=== PATIENT | male | born 1940 | race Caucasian/White ===

== ENCOUNTER 2017-08-02 11:21 | Emergency (ER) | payer BC, MEDICARE, OTHER ==
--- NOTE | 2017-08-02 14:04 | UC ---
Respiratory Complaint HPI - HPI Summary HPI Summary: 77 y/o male present to the urgent care c/o productive cough, SOB and chest congestion for the past 3 days. Pt states cough started to be productive last nigh. He feels fluid is coming up from his chest when he lays down and feels SOB with some wheezing. He started to take Robitussin last night to alleviate cough. Pt denies fever, Chest pain, N/V/D, abdominal pain, urinary symptoms. - History of Current Complaint Chief Complaint: UCRespiratory Stated Complaint: COUGH CONGESTION Time Seen by Provider: 08/02/17 14:02 Hx Obtained From: Patient Onset/Duration: Gradual Onset, Lasting Days - 3 days, Still Present Timing: Intermittent Episodes Severity Initially: Mild Severity Currently: Moderate Pain Intensity: 0 Pain Scale Used: 0-10 Numeric Character: Cough: Productive - white phlegm Aggravating Factors: Recumbent Position Alleviating Factors: Upright Position Associated Signs And Symptoms: Positive: Dyspnea, Wheezing, Edema. Negative: Fever, Chills, Pleuritic Chest Pain, Dizziness, Calf Pain, Calf Swelling - Risk Factors Pulmonary Embolism Risk Factors: Negative Cardiac Risk Factors: Hypertension Pseudomonas Risk Factors: Negative Tuberculosis Risk Factors: Negative - Allergies/Home Medications Allergies/Adverse Reactions: Allergies Allergy/AdvReac Type Severity Reaction Status Date / Time No Known Allergies Allergy Verified 08/02/17 13:18 Home Medications: Home Medications Amiodarone HCl [Amiodarone HCl-] 100 mg PO DAILY 08/02/17 [History Confirmed ] Aspirin [Aspirin 81 MG TAB] 81 mg PO DAILY 08/02/17 [History Confirmed 08/02/17] Blood Thinner Injection 08/02/17 [History] Furosemide TAB* [Lasix TAB*] 20 mg PO DAILY PRN 08/02/17 [History Confirmed ] Losartan TAB* [Cozaar TAB*] 50 mg PO DAILY 08/02/17 [History Confirmed 08/02/17] Omeprazole CAP* [Prilosec CAP* 20 MG] 20 mg PO DAILY 08/02/17 [History Confirmed 08/02/17] Rosuvastatin (NF) [Crestor (NF)] 10 mg PO DAILY 08/02/17 [History Confirmed ] Warfarin TAB(*) [Coumadin TAB(*)] 2 mg PO DAILY 08/02/17 [History Confirmed ] amLODIPine TAB* [Norvasc 5 mg TAB*] 5 mg PO DAILY 08/02/17 [History Confirmed ] PMH/Surg Hx/FS Hx/Imm Hx Previously Healthy: Yes Endocrine History: Dyslipidemia Cardiovascular History: Hypertension Other Cardiovascular History: atificial heart valve GI/ History: Gastroesophageal Reflux - Surgical History Surgical History: Yes Surgery Procedure, Year, and Place: AORTIC VALVE REPLACEMENT. HERNIA REPAIR. CHOLYCYSTECTOMY - Family History Known Family History: Positive: Cardiac Disease, Hypertension - Social History Occupation: Retired Lives: With Family Alcohol Use: None Substance Use Type: None Smoking Status (MU): Former Smoker Type: Cigarettes When Did the Patient Quit Smoking/Using Tobacco: 20 YEARS AGO Review of Systems Constitutional: Negative Skin: Negative Eyes: Negative ENT: Negative Respiratory: Shortness Of Breath, Cough - productive cough Cardiovascular: Negative Gastrointestinal: Negative Genitourinary: Negative Motor: Negative Neurovascular: Negative Musculoskeletal: Negative Neurological: Negative Psychological: Negative Is Patient Immunocompromised?: No All Other Systems Reviewed And Are Negative: Yes Physical Exam Triage Information Reviewed: Yes Appearance: Well-Appearing, No Pain Distress, Well-Nourished - sitting comfortably in the examining table w/o any apaprent distress Vital Signs: Initial Vital Signs Temp 97.8 F 08/02/17 13:27 Pulse 67 08/02/17 13:27 Resp 20 08/02/17 13:27 Pulse Ox 95 08/02/17 13:27 Vital Signs Reviewed: Yes Eyes: Positive: Conjunctiva Clear - PERRLA, EOMI, fundi grossly normal ENT: Positive: Normal ENT inspection, Hearing grossly normal, Pharynx normal, TMs normal - B/L clear exteranal canals, B/L TM's WNL Neck: Positive: Supple, Nontender, No Lymphadenopathy Respiratory: Positive: Chest non-tender, No respiratory distress, No accessory muscle use, Crackles - B/L posterior upper lungs, Rhonchi Cardiovascular: Positive: RRR, Pulses Normal, Brisk Capillary Refill Abdomen Description: Positive: Nontender, No Organomegaly, Soft. Negative: CVA Tenderness (R), CVA Tenderness (L) Bowel Sounds: Positive: Present Musculoskeletal: Positive: Strength Intact, ROM Intact, Edema @ - B/L lowr leg mild pitting edema Neurological: Positive: Alert - A&OX3, CNII-XII intact, Muscle Tone Normal Psychological Exam: Normal Skin Exam: Normal UC Diagnostic Evaluation - Laboratory O2 Sat by Pulse Oximetry: 95 Respiratory Course/Dx - Course Course Of Treatment: 77 y/o male present to the urgent care c/o productive cough , SOB and chest congestion for the past 3 days. Pt states cough started to be productive last nigh. He feels fluid is coming up from his chest when he lays down and feels SOB with some wheezing. He started to take Robitussin last night to alleviate cough. Pt denies fever, Chest pain, N/V/D, abdominal pain, urinary symptoms. Pt with B/L rhonchi and mild crackles in the posterior upper lung ochoa on examination, with O2Sat: 95%, HX of artificial valve since 1989. Pt advised I needed to do a chest X-ray to r/o pnumonia and some blood work to r /o if he is developing CHF. Pt dclined X-ray and stated he has to leave since at 2:30pm he has an appt with his Orthopedic for and cartisone Inj for his shoulder pain, he was advised to stop taking the warfarinf for the past 4 days to be able to get the Inj and he was not going to miss his appt. Dr Walsh consulted on Pt's symptoms and case. DR Walsh evaluated Pt and also advised him to stay and the risks of leaving. Pt left the clinic AMA. Pt left clinic ambulating , hemodynamically stable A&OX3 - Differential Dx/Diagnosis Differential Diagnosis/HQI/PQRI: Bronchitis, CHF, Pulmonary Edema, Lower Resp Infection, Other - pneumonia Provider Diagnoses: 1-Shortness of breath. 2-Cough Discharge - Discharge Plan Condition: Stable Disposition: AGAINST MEDICAL ADVICE Referrals: Jose NG,Kunal Jacobs [Medical Doctor] - Additional Instructions: Pt left the clinic with out being able to perform chest X-ray and Blood work to r/o CHF, pneumonia or any other pathology. Pt states he had an orthopedic appt at 1430pm for a cortisone inj on his left shoulder with the Orthopedic. He left against medical advised. Pt was educated in the risk of leaving AMA.
== END 2017-08-02 14:25 | disposition left against medical advice (07) ==
LOC: UCCORT 11:21
DX: R05 Cough (principal); R09.89 Other specified symptoms and signs involving the circulatory and respiratory systems; R06.02 Shortness of breath
CPT/HCPCS: 99201; G0463

== ENCOUNTER 2017-08-02 15:09 | Emergency (ER) | payer MEDICARE, OTHER ==
--- NOTE | 2017-08-02 15:37 | RAD ---
INDICATION: Cough. Short of breath. COMPARISON: None TECHNIQUE: PA and lateral dual-energy views were obtained. FINDINGS: Bones/Soft Tissues: There are no acute bony findings. There is sternotomy with prior valvular surgery Cardiomediastinal: The cardiomediastinal silhouette is normal. Lungs: There are no infiltrates. Pleura: There are no pleural effusions. Other: None IMPRESSION: NO ACTIVE DISEASE.
[2017-08-02 16:19] VITALS: BP 137/53
--- NOTE | 2017-08-02 16:24 | UC ---
Respiratory Complaint HPI - HPI Summary HPI Summary: 77 y/o male returns to the urgent care after signing AMA about 2 hrs ago. Pt had an appt with Orthopedic at 1430pm today for a Cortisone injection of his left shoulder and he didn't want to miss that appt. PT c/o SOB, wheezing and chest congestion for the past 3 days specially when he is laying down. Cough is productive with a clear phlegm. He has been taking Robitussin to alleviate cough. Pt denies fever, chest pain, N/V/D, dizziness, abdominal pain, Urinary symptoms. Pt was taking off from Warfarin 4 days ago to be able to take the Cortisone Inj. - History of Current Complaint Stated Complaint: CHEST CONGESTION Time Seen by Provider: 08/02/17 16:17 Hx Obtained From: Patient Onset/Duration: Gradual Onset, Lasting Days - 3 days, Still Present Timing: Intermittent Episodes Severity Initially: Mild Severity Currently: Moderate Pain Intensity: 0 Pain Scale Used: 0-10 Numeric Character: Cough: Productive, Sputum Description: - yellowish phlegm Aggravating Factors: Recumbent Position Alleviating Factors: Upright Position Associated Signs And Symptoms: Positive: Dyspnea, Wheezing, Edema. Negative: Fever, URI, Nasal Congestion - Risk Factors Pulmonary Embolism Risk Factors: Negative Cardiac Risk Factors: Negative Pseudomonas Risk Factors: Negative Tuberculosis Risk Factors: Negative - Allergies/Home Medications Allergies/Adverse Reactions: Allergies Allergy/AdvReac Type Severity Reaction Status Date / Time No Known Allergies Allergy Verified 08/02/17 13:18 PMH/Surg Hx/FS Hx/Imm Hx Previously Healthy: Yes Endocrine History: Dyslipidemia Cardiovascular History: Hypertension Other Cardiovascular History: artificail heart valve since 1989 GI/ History: Gastroesophageal Reflux - Surgical History Surgical History: Yes Surgery Procedure, Year, and Place: AORTIC VALVE REPLACEMENT. HERNIA REPAIR. CHOLYCYSTECTOMY - Family History Known Family History: Positive: Cardiac Disease, Hypertension - Social History Occupation: Retired Lives: With Family Alcohol Use: None Substance Use Type: None Smoking Status (MU): Former Smoker Type: Cigarettes When Did the Patient Quit Smoking/Using Tobacco: 20 YEARS AGO Review of Systems Constitutional: Negative Skin: Negative Eyes: Negative ENT: Negative Respiratory: Shortness Of Breath, Cough Cardiovascular: Negative Gastrointestinal: Negative Genitourinary: Negative Motor: Negative Neurovascular: Negative Musculoskeletal: Negative Neurological: Negative Psychological: Negative Is Patient Immunocompromised?: No All Other Systems Reviewed And Are Negative: Yes Physical Exam Triage Information Reviewed: Yes - Additional Comments Vital Signs Reviewed: Yes General: Well developed, well nourished male sitting comfortably in the examining table w/o any apparent distress Eyes: Positive: Conjunctiva Clear - PERRLA, EOMI, fundi grossly normal ENT: Positive: Normal ENT inspection, Hearing grossly normal, Pharynx normal, TMs normal - B/L clear exteranal canals, B/L TM's WNL Neck: Positive: Supple, Nontender, No Lymphadenopathy Respiratory: Positive: Chest non-tender, No respiratory distress, No accessory muscle use, Crackles - B/L posterior upper lungs, Rhonchi Cardiovascular: Positive: RRR, Pulses Normal, Brisk Capillary Refill Abdomen Description: Positive: Nontender, No Organomegaly, Soft. Negative: CVA Tenderness (R), CVA Tenderness (L) Bowel Sounds: Positive: Present Musculoskeletal: Positive: Strength Intact, ROM Intact, Edema @ - B/L lowr leg mild pitting edema Neurological: Positive: Alert - A&OX3, CNII-XII intact, Muscle Tone Normal Psychological Exam: Normal Skin Exam: Normal Respiratory Course/Dx - Course Course Of Treatment: 77 y/o male returns to the urgent care after signing AMA about 2 hrs ago. Pt had an appt with Orthopedic at 1430pm today for a Cortisone injection of his left shoulder and he didn't want to miss that appt. PT c/o SOB , wheezing and chest congestion for the past 3 days specially when he is laying down. Cough is productive with a clear phlegm. He has been taking Robitussin to alleviate cough. Pt denies fever, chest pain, N/V/D, dizziness, abdominal pain, Urinary symptoms. Pt was taking off from Warfarin 4 days ago to be able to take the Cortisone Inj. Chest X-ray ordered: Impression: No cardiopulmonary active disease observed. Dr Stone consulted on Pt sympotms, he suggested to Rx ABX for Pt's bronchitis and f/u with bird trapper or PCP. Pt Rx Amoxicillin PO and Tessalon tabs PO for cough. Pt may also be developing some orthopnea. Pt advised to sleep with 2 pillows. Strongly advised to f/u [facility] for further blood work and managment in 2-3 days. However advised if he develops chest pain w/ increased SOB to go immediately to the ER for treatment. Pt understood and agreed with D/C instructions and left the clinic hemodynamically stable and A&OX3 - Differential Dx/Diagnosis Differential Diagnosis/HQI/PQRI: Asthma, Bronchitis, CHF, Pulmonary Edema, Lower Resp Infection, Other - pneumonia Provider Diagnoses: 1- Acute bronchitis. 2-Cough - Physician Notification/Consults Discussed Patient Care With: Haseeb Smiley - DR Smiley agreed with Pt plan of care Discharge - Discharge Plan Condition: Stable Disposition: HOME Prescriptions: Amoxicillin PO (*) [Amoxicillin 875 MG (*)] 875 mg PO BID #20 tab Benzonatate CAP* [Tessalon 100 MG CAP*] 100 mg PO TID #21 cap Patient Education Materials: Acute Bronchitis (ED) Referrals: Alisa Hatfield MD [Primary Care Provider] - 3 Days Nilesh NG,Dipesh Sánchez [Medical Doctor] - 3 Days No Primary Care Phys,NOPCP [Medical Doctor] - Additional Instructions: 1-Please take full course of antibiotic to avoid resistance. 2-Take Tessalon PO tabs as directed r to alleviate sough. Increase fluid intake , rest and eat well. 3- If symptoms do not improve or worsen or your develop SOB, chest pain with fever and severe wheezing please go immediately to the ER further evaluation and treatment. 4- F/u with your PCP in 2-[address] [address] Garcia for further management you may be developing CHF.
== END 2017-08-02 17:03 | disposition home or self-care (01) ==
LOC: UCCORT 15:09
DX: J20.9 Acute bronchitis, unspecified (principal); I10 Essential (primary) hypertension; Z95.2 Presence of prosthetic heart valve; Z87.891 Personal history of nicotine dependence
CPT/HCPCS: 71020; 99212; G0463